=== PATIENT | male | born 1975 | race Caucasian/White ===

== ENCOUNTER 2016-06-03 19:01 | Emergency (ER) | payer MEDICAID ==
[~2016-06-03 19:01] MED LIST: COUMADIN; QC IBUPROFEN200 MG PO
[2016-06-03] MEDS ORDERED: BACTRIM DS TAB1 EACH PO (19:49)
== END 2016-06-03 19:57 | disposition home or self-care (01) ==
LOC: ED 19:01
DX: L02.415 Cutaneous abscess of right lower limb (principal); M79.1 Myalgia; Z86.19 Personal history of other infectious and parasitic diseases; Z79.01 Long term (current) use of anticoagulants; B95.7 Other staphylococcus as the cause of diseases classified elsewhere
CPT/HCPCS: 90715; A4550

== ENCOUNTER 2020-11-25 10:36 | Emergency (ER) | payer MEDICAID ==
[~2020-11-25 10:36] MED LIST changes: +BACTRIM DS TAB1 EACH PO
[2020-11-25 11:10] LABS: BASO # 0.02 (0.02-0.10); EOS # 0.03 (0.04-0.40); EOS % 0.5 % (0.0-4.0); HEMATOCRIT 40.5 % (42.0-52.0); HEMOGLOBIN 12.8 g/dL (13.5-18.0); LYMPH# 1.16 (1.50-4.00); MEAN CELL VOLUME 88 fl (78-100); MEAN CORPUSCULAR HEMOGLOBIN 28 pg (27-31); MEAN CORPUSCULAR HGB CONC 32 g/dL (33-37); MEAN PLATELET VOLUME 10.5 fl (7.4-10.4); MONO # 0.66 (0.20-0.80); NEU # 4.08 (1.40-6.50); PLATELET COUNT 162 K/mm3 (130-400); RED BLOOD COUNT 4.63 M/mm3 (4.20-5.60)
[2020-11-25 11:25] LABS: ALBUMIN 3.3 g/dL (3.5-5.0)
[2020-11-25 11:26] LABS: CALCIUM 8.7 mg/dL (8.3-10.5)
[2020-11-25 11:28] LABS: TOTAL PROTEIN 6.6 g/dL (6.4-8.3)
[2020-11-25 11:29] LABS: TOTAL BILIRUBIN 0.7 mg/dL (0.2-1.2)
[2020-11-25] MEDS ORDERED: WARFARIN SOD5 MG PO (12:12)
[2020-11-25] MEDS ORDERED: WARFARIN SODIU2.5 MG PO (12:14)
[2020-11-25 12:18] LABS: PH-URINE 6.5 (5.0 - 8.0); URINE APPEARANCE HAZY; URINE BILIRUBIN NEGATIVE (NEGATIVE); URINE BLOOD TRACE (NEGATIVE); URINE COLOR YELLOW; URINE GLUCOSE NEGATIVE (NEGATIVE); URINE KETONE 2+ (NEGATIVE); URINE LEUKOCYTE ESTERASE NEGATIVE (NEGATIVE); URINE NITRATE NEGATIVE (NEGATIVE); URINE PROTEIN(semi-quant) NEGATIVE (NEGATIVE); URINE UROBILINOGEN NORMAL (NORMAL); URINE WBC 0-1 /hpf (0-3)
[2020-11-25 12:19] LABS: URINE MUCUS PRESENT (NOT PRESENT)
[2020-11-25 12:45] VITALS: BP 128/92
== END 2020-11-25 13:28 | disposition short-term general hospital (02) ==
LOC: ED 10:36
PROVIDERS: Nurse Practitioner
DX: I62.00 Nontraumatic subdural hemorrhage, unspecified (principal); G93.5 Compression of brain; G80.9 Cerebral palsy, unspecified; Z86.718 Personal history of other venous thrombosis and embolism; Z79.01 Long term (current) use of anticoagulants
CPT/HCPCS: J2270; J2405; J3430; J7030

== ENCOUNTER 2020-12-16 10:33 | Emergency (ER) | payer MEDICAID ==
[~2020-12-16] VITALS: Ht 172.7 cm; Wt 61.8 kg
[~2020-12-16 10:33] MED LIST changes: +WARFARIN SOD5 MG PO; +WARFARIN SODIU2.5 MG PO
[2020-12-16] MEDS ORDERED: TYLENOL 325MG325 MG PO (11:11)
[2020-12-16 11:30] LABS: BASO # 0.01 (0.02-0.10); EOS # 0.05 (0.04-0.40); HEMATOCRIT 38.1 % (42.0-52.0); HEMOGLOBIN 11.6 g/dL (13.5-18.0); LYMPH# 0.98 (1.50-4.00); MEAN CELL VOLUME 91 fl (78-100); MEAN CORPUSCULAR HEMOGLOBIN 28 pg (27-31); MEAN CORPUSCULAR HGB CONC 30 g/dL (33-37); MEAN PLATELET VOLUME 10.4 fl (7.4-10.4); MONO # 0.61 (0.20-0.80); NEU # 3.59 (1.40-6.50); PLATELET COUNT 151 K/mm3 (130-400); RED BLOOD COUNT 4.19 M/mm3 (4.20-5.60); RED CELL DISTRIBUTION WIDTH 15.1 % (11.5-14.5); WHITE BLOOD COUNT 5.3 K/mm3 (4.8-10.8)
[2020-12-16 11:33] LABS: ALBUMIN 3.2 g/dL (3.5-5.0)
[2020-12-16 11:35] LABS: CALCIUM 8.4 mg/dL (8.3-10.5)
[2020-12-16 11:36] LABS: TOTAL PROTEIN 6.3 g/dL (6.4-8.3)
[2020-12-16 11:38] LABS: TOTAL BILIRUBIN 0.6 mg/dL (0.2-1.2)
[2020-12-16 11:39] LABS: URINE APPEARANCE CLEAR; URINE BILIRUBIN NEGATIVE (NEGATIVE); URINE BLOOD NEGATIVE (NEGATIVE); URINE COLOR YELLOW; URINE GLUCOSE NEGATIVE (NEGATIVE); URINE KETONE NEGATIVE (NEGATIVE); URINE LEUKOCYTE ESTERASE NEGATIVE (NEGATIVE); URINE MUCUS PRESENT (NOT PRESENT); URINE NITRATE NEGATIVE (NEGATIVE); URINE PROTEIN(semi-quant) NEGATIVE (NEGATIVE); URINE UROBILINOGEN NORMAL (NORMAL)
[2020-12-16 12:06] LABS: PROTHROMBIN TIME 10.5 SECONDS (9.0-12.0)
[2020-12-16 15:00] VITALS: BP 136/58
== END 2020-12-16 15:02 | disposition home or self-care (01) ==
LOC: ED 10:33
PROVIDERS: Physician Assistant
DX: I82.403 Acute embolism and thrombosis of unspecified deep veins of lower extremity, bilateral (principal); G80.9 Cerebral palsy, unspecified; Z86.79 Personal history of other diseases of the circulatory system

== ENCOUNTER 2020-12-16 21:46 | Emergency (ER) | payer MEDICAID ==
[~2020-12-16 21:46] MED LIST changes: +TYLENOL 325MG325 MG PO
[2020-12-16 23:28] VITALS: BP 124/69
== END 2020-12-16 23:28 | disposition home or self-care (01) ==
LOC: ED 21:46
DX: G80.9 Cerebral palsy, unspecified (principal); I82.403 Acute embolism and thrombosis of unspecified deep veins of lower extremity, bilateral; R07.89 Other chest pain; Z86.79 Personal history of other diseases of the circulatory system
CPT/HCPCS: Q9967

== ENCOUNTER → 2020-12-17 | Outpatient (CLI) | payer MEDICAID ==
[~2020-12-17] MED LIST changes: +ACETAMINOPHEN325 M1 PO; +ATORVASTATIN CA10 MG PO; +CEPHALEXIN250 MG PO; +LACRI-LUBE OU; +OCULAR LUBRICANT OU; +VITAMIN D3 COM1 EACH PO
== END ==
LOC: RAD 13:13
DX: I62.00 Nontraumatic subdural hemorrhage, unspecified (principal)

== ENCOUNTER 2020-12-25 11:23 | Emergency (ER) | payer MEDICAID ==
[~2020-12-25] VITALS: Ht 170.2 cm; Wt 61.8 kg
[~2020-12-25 11:23] MED LIST changes: -ACETAMINOPHEN325 M1 PO; -ATORVASTATIN CA10 MG PO; -CEPHALEXIN250 MG PO; -LACRI-LUBE OU; -OCULAR LUBRICANT OU; -VITAMIN D3 COM1 EACH PO
[2020-12-25 14:10] VITALS: BP 119/81
== END 2020-12-28 14:10 | disposition home or self-care (01) ==
LOC: ED 11:23
DX: G80.9 Cerebral palsy, unspecified (principal); I82.409 Acute embolism and thrombosis of unspecified deep veins of unspecified lower extremity; I62.00 Nontraumatic subdural hemorrhage, unspecified

== ENCOUNTER → 2021-01-20 | Outpatient (CLI) | payer MEDICAID ==
[~2021-01-20] MED LIST changes: +ACETAMINOPHEN325 M1 PO; +ATORVASTATIN CA10 MG PO; +CEPHALEXIN250 MG PO; +LACRI-LUBE OU; +OCULAR LUBRICANT OU; +VITAMIN D3 COM1 EACH PO
[2021-01-20 13:41] LABS: BASO # 0.01 (0.02-0.10); EOS # 0.07 (0.04-0.40); EOS % 1.3 % (0.0-4.0); HEMATOCRIT 41.3 % (42.0-52.0); HEMOGLOBIN 12.9 g/dL (13.5-18.0); LYMPH# 1.25 (1.50-4.00); MEAN CELL VOLUME 89 fl (78-100); MEAN CORPUSCULAR HEMOGLOBIN 28 pg (27-31); MEAN CORPUSCULAR HGB CONC 31 g/dL (33-37); MEAN PLATELET VOLUME 10.5 fl (7.4-10.4); MONO # 0.44 (0.20-0.80); NEU # 3.44 (1.40-6.50); PLATELET COUNT 134 K/mm3 (130-400); RED BLOOD COUNT 4.65 M/mm3 (4.20-5.60); RED CELL DISTRIBUTION WIDTH 13.7 % (11.5-14.5); WHITE BLOOD COUNT 5.2 K/mm3 (4.8-10.8)
[2021-01-20 13:56] LABS: ALBUMIN 3.4 g/dL (3.5-5.0); POTASSIUM 3.6 mmol/L (3.5-5.1); SODIUM 141 mmol/L (136-145)
[2021-01-20 13:57] LABS: CALCIUM 9.3 mg/dL (8.3-10.5)
[2021-01-20 13:58] LABS: GLUCOSE 102 mg/dL (75-110); TOTAL PROTEIN 6.6 g/dL (6.4-8.3)
[2021-01-20 13:59] LABS: CARBON DIOXIDE 25 mmol/L (22-29)
[2021-01-20 14:00] LABS: TOTAL BILIRUBIN 0.4 mg/dL (0.2-1.2)
[2021-01-20 14:04] LABS: AST-SGOT 25 U/L (5-34)
[2021-01-20 14:05] LABS: ALT/SGPT 22 U/L (0-55)
[2021-01-20 15:34] LABS: ERYTHROCYTE SEDIMENTATION RATE 4 mm/hr (0-15)
== END ==
LOC: RAD 01-19 10:00 → LAB 13:00 → RAD 13:00
DX: K90.9 Intestinal malabsorption, unspecified (principal); R51.9 Headache, unspecified

== ENCOUNTER 2021-02-27 18:50 | Emergency (ER) | payer MEDICAID ==
[~2021-02-27 18:50] MED LIST changes: -ACETAMINOPHEN325 M1 PO; -ATORVASTATIN CA10 MG PO; -CEPHALEXIN250 MG PO; -LACRI-LUBE OU; -OCULAR LUBRICANT OU; -VITAMIN D3 COM1 EACH PO
[2021-02-27] MEDS ORDERED: ATORVASTATIN CA10 MG PO (19:03)
[2021-02-27 19:50] VITALS: BP 119/68
== END 2021-02-27 19:50 | disposition home or self-care (01) ==
LOC: ED 18:50
DX: I82.409 Acute embolism and thrombosis of unspecified deep veins of unspecified lower extremity (principal); R51.9 Headache, unspecified; G80.9 Cerebral palsy, unspecified; Z86.79 Personal history of other diseases of the circulatory system

== ENCOUNTER 2021-03-07 20:52 | Emergency (ER) | payer MEDICAID ==
[~2021-03-07] VITALS: Wt 61.4 kg
[~2021-03-07 20:52] MED LIST changes: +ATORVASTATIN CA10 MG PO
[2021-03-07] MEDS ORDERED: VITAMIN D3 COM1 EACH PO (21:06)
[2021-03-07 22:35] LABS: EOS % 1.3 % (0.0-4.0); HEMATOCRIT 39.9 % (42.0-52.0); HEMOGLOBIN 12.6 g/dL (13.5-18.0); LYMPH# 1.18 K/mm3 (1.50-4.00); MEAN CELL VOLUME 88 fl (78-100); MEAN CORPUSCULAR HEMOGLOBIN 28 pg (27-31); MEAN CORPUSCULAR HGB CONC 32 g/dL (33-37); MEAN PLATELET VOLUME 10.7 fl (7.4-10.4); NEU # 5.29 K/mm3 (1.40-6.50); PLATELET COUNT 154 K/mm3 (130-400); RED BLOOD COUNT 4.54 M/mm3 (4.20-5.60); RED CELL DISTRIBUTION WIDTH 12.9 % (11.5-14.5); WHITE BLOOD COUNT 7.5 K/mm3 (4.8-10.8)
[2021-03-07] MEDS ORDERED: CEPHALEXIN250 MG PO ×2 (23:19→23:31)
[2021-03-07 23:36] VITALS: BP 108/73
== END 2021-03-07 23:37 | disposition home or self-care (01) ==
LOC: ED 20:52
PROVIDERS: Family Medicine
DX: I82.401 Acute embolism and thrombosis of unspecified deep veins of right lower extremity (principal); L03.115 Cellulitis of right lower limb; G80.9 Cerebral palsy, unspecified

== ENCOUNTER 2021-03-12 19:00 | Observation (INO) | payer MEDICAID ==
[~2021-03-12] VITALS: Ht 172.7 cm; Wt 61.9 kg
[~2021-03-12 19:00] MED LIST changes: +CEPHALEXIN250 MG PO; +VITAMIN D3 COM1 EACH PO
[2021-03-12 20:22] LABS: BASO # 0.01 K/mm3 (0.02-0.10); EOS # 0.12 K/mm3 (0.04-0.40); EOS % 1.9 % (0.0-4.0); HEMATOCRIT 41.5 % (42.0-52.0); HEMOGLOBIN 12.8 g/dL (13.5-18.0); LYMPH# 1.63 K/mm3 (1.50-4.00); MEAN CELL VOLUME 88 fl (78-100); MEAN CORPUSCULAR HEMOGLOBIN 27 pg (27-31); MEAN CORPUSCULAR HGB CONC 31 g/dL (33-37); MEAN PLATELET VOLUME 11.1 fl (7.4-10.4); MONO # 0.66 K/mm3 (0.20-0.80); PLATELET COUNT 139 K/mm3 (130-400); RED BLOOD COUNT 4.71 M/mm3 (4.20-5.60); RED CELL DISTRIBUTION WIDTH 12.8 % (11.5-14.5); WHITE BLOOD COUNT 6.3 K/mm3 (4.8-10.8)
[2021-03-12 20:35] LABS: ALBUMIN 3.2 g/dL (3.5-5.0)
[2021-03-12 20:36] LABS: POTASSIUM 4.1 mmol/L (3.5-5.1)
[2021-03-12 20:37] LABS: URINE WBC 0 /hpf (0-3)
[2021-03-12 20:37] LABS: CALCIUM 9.2 mg/dL (8.3-10.5)
[2021-03-12 20:38] LABS: TOTAL PROTEIN 6.7 g/dL (6.4-8.3)
[2021-03-12 20:40] LABS: TOTAL BILIRUBIN 0.3 mg/dL (0.2-1.2)
[2021-03-12 20:49] LABS: PH-URINE 6.5 (5.0 - 8.0); URINE APPEARANCE CLEAR; URINE BILIRUBIN NEGATIVE (NEGATIVE); URINE BLOOD NEGATIVE (NEGATIVE); URINE COLOR YELLOW; URINE GLUCOSE NEGATIVE (NEGATIVE); URINE KETONE NEGATIVE (NEGATIVE); URINE LEUKOCYTE ESTERASE NEGATIVE (NEGATIVE); URINE NITRATE NEGATIVE (NEGATIVE); URINE PROTEIN(semi-quant) TRACE mg/dL (NEGATIVE); URINE UROBILINOGEN NORMAL (NORMAL)
[2021-03-12 20:50] LABS: URINE MUCUS PRESENT (NOT PRESENT)
[2021-03-12 22:49] VITALS: BP 124/94
[2021-03-13 02:10] VITALS: BP 118/70
[2021-03-13 05:56] VITALS: BP 115/73
--- NOTE | 2021-03-13 09:34 | NUR ---
Patient resting in chair watching TV. Visiting with staff in regards to leaving today. Requesting a shower and clean clothes prior to leaving. Awaiting recomendations from neurosurgery. Reports he slept well last night. Chair in locked position. Call light within reach.
[2021-03-13 10:20] VITALS: BP 118/90
[2021-03-13 14:15] VITALS: BP 118/72
[2021-03-13 18:02] VITALS: BP 113/75
--- NOTE | 2021-03-13 18:50 | NUR ---
Report received from Mayi BROWN. Pt sitting in reciliner watching TV. Pt denies any needs at this time.
--- NOTE | 2021-03-13 20:10 | NUR ---
Call received from rooming house inspector at [facility] et bed assignment [facility] ICU RM 14. Pt notified. Mom Michelle notified. [facility] notified of transfer.
--- NOTE | 2021-03-13 20:17 | NUR ---
Notified EMS of pt needing transfer to [facility]. Medical Billing Service reports that they will probably not be available til about 2144 as trucks all tied up at football games and one truck in middle of transport. Will plan on their transporting patient unless pt needing quicker transfer. VSS on this patient.
--- NOTE | 2021-03-13 20:27 | NUR ---
Report called to Tiara BROWN at [facility] neuro ICU.
[2021-03-13 20:58] VITALS: BP 113/75
--- NOTE | 2021-03-13 22:07 | NUR ---
EMS here. Report and transfer paperwork given. EMS to transport pt to [facility].
== END 2021-03-13 22:07 | disposition short-term general hospital (02) ==
LOC: ED 19:00 → MED/SURG 22:13
PROVIDERS: ADMIT Nurse Practitioner Family
DX: I62.01 Nontraumatic acute subdural hemorrhage (principal); L03.115 Cellulitis of right lower limb; G80.9 Cerebral palsy, unspecified; E78.5 Hyperlipidemia, unspecified; Z86.718 Personal history of other venous thrombosis and embolism; Z79.899 Other long term (current) drug therapy
CPT/HCPCS: G0378

== ENCOUNTER 2021-03-17 19:26 | Inpatient (IN) | payer MEDICAID ==
[~2021-03-17] VITALS: Ht 167.6 cm; Wt 61.8 kg
[2021-03-17 19:30] VITALS: BP 115/78
[2021-03-17] MEDS ORDERED: ACETAMINOPHEN325 M1 PO (19:55)
[2021-03-17] MEDS ORDERED: LACRI-LUBE OU (20:00)
[2021-03-17] MEDS ORDERED: OCULAR LUBRICANT OU (20:01)
[2021-03-17 21:58] LABS: BASO # 0.02 K/mm3 (0.02-0.10); EOS # 0.16 K/mm3 (0.04-0.40); EOS % 1.9 % (0.0-4.0); HEMATOCRIT 40.6 % (42.0-52.0); HEMOGLOBIN 12.6 g/dL (13.5-18.0); LYMPH# 1.78 K/mm3 (1.50-4.00); MEAN CELL VOLUME 86 fl (78-100); MEAN CORPUSCULAR HEMOGLOBIN 27 pg (27-31); MEAN CORPUSCULAR HGB CONC 31 g/dL (33-37); MEAN PLATELET VOLUME 10.6 fl (7.4-10.4); MONO # 0.86 K/mm3 (0.20-0.80); NEU # 5.58 K/mm3 (1.40-6.50); PLATELET COUNT 131 K/mm3 (130-400); RED CELL DISTRIBUTION WIDTH 12.9 % (11.5-14.5); WHITE BLOOD COUNT 8.4 K/mm3 (4.8-10.8)
[2021-03-18 05:57] VITALS: BP 106/68
[2021-03-18 08:01] LABS: HEMATOCRIT 39.1 % (42.0-52.0); HEMOGLOBIN 12.3 g/dL (13.5-18.0); MEAN PLATELET VOLUME 10.7 fl (7.4-10.4); RED BLOOD COUNT 4.53 M/mm3 (4.20-5.60); WHITE BLOOD COUNT 5.7 K/mm3 (4.8-10.8)
[2021-03-18 08:11] LABS: POTASSIUM 4.1 mmol/L (3.5-5.1)
[2021-03-18 08:12] LABS: CALCIUM 8.4 mg/dL (8.3-10.5)
[2021-03-18 08:14] LABS: TOTAL PROTEIN 6.2 g/dL (6.4-8.3)
[2021-03-18 08:15] LABS: TOTAL BILIRUBIN 0.4 mg/dL (0.2-1.2)
[2021-03-18 17:37] VITALS: BP 114/83
[2021-03-18 19:27] LABS: URINE APPEARANCE CLEAR; URINE BILIRUBIN NEGATIVE (NEGATIVE); URINE BLOOD NEGATIVE (NEGATIVE); URINE COLOR YELLOW; URINE GLUCOSE NEGATIVE (NEGATIVE); URINE KETONE NEGATIVE (NEGATIVE); URINE LEUKOCYTE ESTERASE NEGATIVE (NEGATIVE); URINE MUCUS PRESENT (NOT PRESENT); URINE NITRATE NEGATIVE (NEGATIVE); URINE PROTEIN(semi-quant) TRACE mg/dL (NEGATIVE); URINE UROBILINOGEN NORMAL (NORMAL); URINE WBC 0-1 /hpf (0-3)
[2021-03-19 05:50] VITALS: BP 107/67
[2021-03-19 18:30] VITALS: BP 113/64
[2021-03-20 05:45] VITALS: BP 109/66
[2021-03-20 10:36] LABS: PROTHROMBIN TIME 11.9 SECONDS (9.0-12.0)
[2021-03-20 17:16] VITALS: BP 102/56
[2021-03-21 05:40] VITALS: BP 114/69
[2021-03-21 17:41] VITALS: BP 124/83
[2021-03-22 05:50] VITALS: BP 102/73
[2021-03-22 17:56] VITALS: BP 106/740
[2021-03-23 06:03] VITALS: BP 111/69
[2021-03-23 14:22] VITALS: BP 128/75
[2021-03-24 05:44] VITALS: BP 109/71
[2021-03-24 16:42] VITALS: BP 134/73
[2021-03-25 05:37] VITALS: BP 113/68
[2021-03-25 18:05] VITALS: BP 115/73
[2021-03-26 05:39] VITALS: BP 118/73
[2021-03-26 06:55] LABS: BASO # 0.01 K/mm3 (0.02-0.10); EOS # 0.12 K/mm3 (0.04-0.40); EOS % 2.3 % (0.0-4.0); HEMOGLOBIN 11.6 g/dL (13.5-18.0); LYMPH# 1.11 K/mm3 (1.50-4.00); MEAN CELL VOLUME 87 fl (78-100); MEAN CORPUSCULAR HEMOGLOBIN 27 pg (27-31); MEAN CORPUSCULAR HGB CONC 31 g/dL (33-37); MONO # 0.66 K/mm3 (0.20-0.80); NEU # 3.31 K/mm3 (1.40-6.50); PLATELET COUNT 123 K/mm3 (130-400); RED BLOOD COUNT 4.25 M/mm3 (4.20-5.60); RED CELL DISTRIBUTION WIDTH 13.4 % (11.5-14.5); WHITE BLOOD COUNT 5.2 K/mm3 (4.8-10.8)
[2021-03-26 07:38] LABS: CALCIUM 8.2 mg/dL (8.3-10.5)
[2021-03-26 18:50] VITALS: BP 124/83
[2021-03-27 05:50] VITALS: BP 116/76
[2021-03-27 18:01] VITALS: BP 109/68
[2021-03-28 06:35] VITALS: BP 121/70
[2021-03-28 18:20] VITALS: BP 128/74
[2021-03-29 06:08] VITALS: BP 113/64
[2021-03-29 18:00] VITALS: BP 126/75
[2021-03-30 06:19] VITALS: BP 109/66
[2021-03-30 15:01] VITALS: BP 115/73
[2021-03-31 05:57] VITALS: BP 111/62
== END 2021-03-31 12:09 | disposition home or self-care (01) | DRG 947 ==
LOC: MED/SURG 19:26
PROVIDERS: Nurse Practitioner; Physician Assistant; ADMIT Nurse Practitioner Family
DX: R53.81 Other malaise (principal); I62.02 Nontraumatic subacute subdural hemorrhage; L03.115 Cellulitis of right lower limb; G80.9 Cerebral palsy, unspecified; Z86.718 Personal history of other venous thrombosis and embolism; E78.5 Hyperlipidemia, unspecified; R51.9 Headache, unspecified

== ENCOUNTER → 2021-04-13 | Outpatient (CLI) | payer MEDICAID ==
[~2021-04-13] MED LIST changes: +ACETAMINOPHEN325 M1 PO; +LACRI-LUBE OU; +OCULAR LUBRICANT OU
== END ==
LOC: VAS 16:02
DX: I82.413 Acute embolism and thrombosis of femoral vein, bilateral (principal); I82.433 Acute embolism and thrombosis of popliteal vein, bilateral; I82.812 Embolism and thrombosis of superficial veins of left lower extremity

== ENCOUNTER 2021-04-27 17:05 | Emergency (ER) | payer MEDICAID ==
[~2021-04-27] VITALS: Wt 65.9 kg
[~2021-04-27 17:05] MED LIST changes: -OMEPRAZOLE40 MG PO
[2021-04-27 17:57] LABS: BASO # 0.02 K/mm3 (0.02-0.10); EOS % 3.1 % (0.0-4.0); HEMATOCRIT 39.9 % (42.0-52.0); HEMOGLOBIN 12.3 g/dL (13.5-18.0); LYMPH# 1.61 K/mm3 (1.50-4.00); MEAN CELL VOLUME 87 fl (78-100); MEAN CORPUSCULAR HEMOGLOBIN 27 pg (27-31); MEAN CORPUSCULAR HGB CONC 31 g/dL (33-37); MEAN PLATELET VOLUME 10.1 fl (7.4-10.4); MONO # 0.63 K/mm3 (0.20-0.80); NEU # 3.91 K/mm3 (1.40-6.50); PLATELET COUNT 115 K/mm3 (130-400); RED BLOOD COUNT 4.61 M/mm3 (4.20-5.60); RED CELL DISTRIBUTION WIDTH 14.3 % (11.5-14.5); WHITE BLOOD COUNT 6.4 K/mm3 (4.8-10.8)
[2021-04-27 18:29] LABS: POTASSIUM 3.7 mmol/L (3.5-5.1)
[2021-04-27 18:42] VITALS: BP 128/69
[2021-04-27] MEDS ORDERED: OMEPRAZOLE40 MG PO (18:54)
== END 2021-04-27 18:42 | disposition home or self-care (01) ==
LOC: ED 17:05
PROVIDERS: Nurse Practitioner
DX: M79.652 Pain in left thigh (principal); G80.9 Cerebral palsy, unspecified; E78.5 Hyperlipidemia, unspecified; Z86.718 Personal history of other venous thrombosis and embolism; Z79.899 Other long term (current) drug therapy

== ENCOUNTER → 2021-04-27 | Outpatient (CLI) | payer MEDICAID ==
[~2021-04-27] MED LIST changes: +OMEPRAZOLE40 MG PO
== END ==
LOC: RAD 12:53
DX: S06.5X0A Traumatic subdural hemorrhage without loss of consciousness, initial encounter (principal)

== ENCOUNTER → 2021-05-19 | Outpatient (CLI) | payer MEDICAID ==
[~2021-05-19] MED LIST changes: +OMEPRAZOLE40 MG PO
[2021-05-19 12:54] LABS: BASO # 0.01 K/mm3 (0.02-0.10); EOS # 0.13 K/mm3 (0.04-0.40); EOS % 2.7 % (0.0-4.0); HEMATOCRIT 40.6 % (42.0-52.0); HEMOGLOBIN 12.4 g/dL (13.5-18.0); MEAN CELL VOLUME 86 fl (78-100); MEAN CORPUSCULAR HEMOGLOBIN 26 pg (27-31); MEAN CORPUSCULAR HGB CONC 31 g/dL (33-37); MEAN PLATELET VOLUME 10.1 fl (7.4-10.4); MONO # 0.48 K/mm3 (0.20-0.80); NEU # 2.86 K/mm3 (1.40-6.50); PLATELET COUNT 174 K/mm3 (130-400); RED BLOOD COUNT 4.72 M/mm3 (4.20-5.60); RED CELL DISTRIBUTION WIDTH 14.1 % (11.5-14.5); WHITE BLOOD COUNT 4.8 K/mm3 (4.8-10.8)
[2021-05-19 13:04] LABS: ALBUMIN 3.5 g/dL (3.5-5.0); POTASSIUM 4.4 mmol/L (3.5-5.1); SODIUM 141 mmol/L (136-145)
[2021-05-19 13:07] LABS: GLUCOSE 108 mg/dL (75-110); TOTAL PROTEIN 7.2 g/dL (6.4-8.3)
[2021-05-19 13:08] LABS: CARBON DIOXIDE 27 mmol/L (22-29)
[2021-05-19 13:09] LABS: TOTAL BILIRUBIN 0.3 mg/dL (0.2-1.2)
[2021-05-19 13:12] LABS: AST-SGOT 31 U/L (5-34)
[2021-05-19 13:13] LABS: ALT/SGPT 28 U/L (0-55)
[2021-05-19 13:15] LABS: PROTHROMBIN TIME 37.7 SECONDS (9.0-12.0)
== END ==
LOC: LAB 12:34
PROVIDERS: Internal Medicine
DX: I62.00 Nontraumatic subdural hemorrhage, unspecified (principal); I74.9 Embolism and thrombosis of unspecified artery; K90.9 Intestinal malabsorption, unspecified

== ENCOUNTER → 2021-05-25 | Outpatient (CLI) | payer MEDICAID ==
[2021-05-25 11:10] LABS: PROTHROMBIN TIME 13.1 SECONDS (9.0-12.0)
== END ==
LOC: LAB 10:39
PROVIDERS: Internal Medicine
DX: I74.9 Embolism and thrombosis of unspecified artery (principal)

== ENCOUNTER → 2021-06-01 | Outpatient (CLI) | payer MEDICAID ==
[2021-06-01 13:03] LABS: PROTHROMBIN TIME 24.3 SECONDS (9.0-12.0)
== END ==
LOC: LAB 11:29
PROVIDERS: Internal Medicine
DX: I74.9 Embolism and thrombosis of unspecified artery (principal)

== ENCOUNTER 2021-06-06 15:23 | Emergency (ER) | payer MEDICAID ==
[~2021-06-06] VITALS: Ht 167.6 cm; Wt 68.2 kg
[2021-06-06 16:48] LABS: BASO # 0.02 K/mm3 (0.02-0.10); EOS # 0.15 K/mm3 (0.04-0.40); EOS % 2.7 % (0.0-4.0); HEMATOCRIT 40.1 % (42.0-52.0); HEMOGLOBIN 12.6 g/dL (13.5-18.0); LYMPH# 1.48 K/mm3 (1.50-4.00); MEAN CELL VOLUME 85 fl (78-100); MEAN CORPUSCULAR HEMOGLOBIN 27 pg (27-31); MEAN CORPUSCULAR HGB CONC 31 g/dL (33-37); MEAN PLATELET VOLUME 11.1 fl (7.4-10.4); MONO # 0.53 K/mm3 (0.20-0.80); NEU # 3.31 K/mm3 (1.40-6.50); PLATELET COUNT 166 K/mm3 (130-400); RED CELL DISTRIBUTION WIDTH 14.7 % (11.5-14.5); WHITE BLOOD COUNT 5.5 K/mm3 (4.8-10.8)
[2021-06-06 17:30] VITALS: BP 112/68
== END 2021-06-06 17:30 | disposition home or self-care (01) ==
LOC: ED 15:23
PROVIDERS: Family Medicine
DX: G44.309 Post-traumatic headache, unspecified, not intractable (principal); R07.89 Other chest pain; E78.5 Hyperlipidemia, unspecified; Z87.820 Personal history of traumatic brain injury; Z86.718 Personal history of other venous thrombosis and embolism; Z79.01 Long term (current) use of anticoagulants; Z79.899 Other long term (current) drug therapy

== ENCOUNTER → 2021-06-08 | Outpatient (CLI) | payer MEDICAID ==
[2021-06-08 13:32] LABS: PROTHROMBIN TIME 11.7 SECONDS (9.0-12.0)
== END ==
LOC: LAB 12:30
PROVIDERS: Internal Medicine
DX: I74.9 Embolism and thrombosis of unspecified artery (principal)

== ENCOUNTER 2021-06-13 15:56 | Emergency (ER) | payer MEDICAID ==
[~2021-06-13] VITALS: Wt 67.6 kg
[2021-06-13 16:09] VITALS: BP 117/93
[2021-06-13] MEDS ORDERED: WARFARIN SODIUM1 MG PO (16:13)
[2021-06-13 17:13] LABS: BASO # 0.01 K/mm3 (0.02-0.10); EOS # 0.14 K/mm3 (0.04-0.40); EOS % 2.5 % (0.0-4.0); HEMATOCRIT 40.2 % (42.0-52.0); HEMOGLOBIN 12.6 g/dL (13.5-18.0); LYMPH# 1.36 K/mm3 (1.50-4.00); MEAN CELL VOLUME 85 fl (78-100); MEAN CORPUSCULAR HEMOGLOBIN 27 pg (27-31); MEAN CORPUSCULAR HGB CONC 31 g/dL (33-37); MEAN PLATELET VOLUME 10.9 fl (7.4-10.4); MONO # 0.58 K/mm3 (0.20-0.80); NEU # 3.61 K/mm3 (1.40-6.50); PLATELET COUNT 156 K/mm3 (130-400); RED BLOOD COUNT 4.73 M/mm3 (4.20-5.60); WHITE BLOOD COUNT 5.7 K/mm3 (4.8-10.8)
[2021-06-13 17:26] LABS: ALBUMIN 3.4 g/dL (3.5-5.0); POTASSIUM 4.4 mmol/L (3.5-5.1)
[2021-06-13 17:27] LABS: CALCIUM 8.9 mg/dL (8.3-10.5)
[2021-06-13 17:29] LABS: TOTAL PROTEIN 6.9 g/dL (6.4-8.3)
[2021-06-13 17:30] LABS: TOTAL BILIRUBIN 0.4 mg/dL (0.2-1.2)
[2021-06-13 17:40] LABS: PROTHROMBIN TIME 33.9 SECONDS (9.0-12.0)
[2021-06-13] MEDS ORDERED: TRAMADOL 50 MG TAB PO (18:06)
== END 2021-06-13 18:12 | disposition home or self-care (01) ==
LOC: ED 15:56
PROVIDERS: Family Medicine
DX: S61.219A Laceration without foreign body of unspecified finger without damage to nail, initial encounter (principal); R07.89 Other chest pain; G80.9 Cerebral palsy, unspecified; E78.5 Hyperlipidemia, unspecified; Z86.718 Personal history of other venous thrombosis and embolism; Z79.01 Long term (current) use of anticoagulants; Z79.899 Other long term (current) drug therapy; X58.XXXA Exposure to other specified factors, initial encounter

== ENCOUNTER → 2021-06-15 | Outpatient (CLI) | payer MEDICAID ==
[~2021-06-15] MED LIST changes: +TRAMADOL 50 MG TAB PO; +WARFARIN SODIUM1 MG PO
[2021-06-15 11:42] LABS: PROTHROMBIN TIME 23.9 SECONDS (9.0-12.0)
== END ==
LOC: LAB 11:07
PROVIDERS: Internal Medicine
DX: I74.9 Embolism and thrombosis of unspecified artery (principal)

== ENCOUNTER → 2021-06-22 | Outpatient (CLI) | payer MEDICAID ==
[2021-06-22 13:20] LABS: PROTHROMBIN TIME 17.5 SECONDS (9.0-12.0)
== END ==
LOC: LAB 12:59
PROVIDERS: Internal Medicine
DX: I74.9 Embolism and thrombosis of unspecified artery (principal)

== ENCOUNTER → 2021-06-29 | Outpatient (CLI) | payer MEDICAID ==
[2021-06-29 11:25] LABS: PROTHROMBIN TIME 13.8 SECONDS (9.0-12.0)
== END ==
LOC: LAB 10:48
PROVIDERS: Internal Medicine
DX: I74.9 Embolism and thrombosis of unspecified artery (principal)

== ENCOUNTER 2021-07-03 10:16 | Emergency (ER) | payer MEDICAID ==
[~2021-07-03] VITALS: Ht 167.6 cm; Wt 67.6 kg
[2021-07-03 11:07] LABS: BASO # 0.02 K/mm3 (0.02-0.10); EOS # 0.09 K/mm3 (0.04-0.40); EOS % 1.8 % (0.0-4.0); HEMATOCRIT 41.2 % (42.0-52.0); HEMOGLOBIN 12.9 g/dL (13.5-18.0); LYMPH# 1.29 K/mm3 (1.50-4.00); MEAN CELL VOLUME 85 fl (78-100); MEAN CORPUSCULAR HEMOGLOBIN 27 pg (27-31); MEAN CORPUSCULAR HGB CONC 31 g/dL (33-37); MEAN PLATELET VOLUME 11.1 fl (7.4-10.4); MONO # 0.45 K/mm3 (0.20-0.80); NEU # 3.17 K/mm3 (1.40-6.50); PLATELET COUNT 171 K/mm3 (130-400); RED BLOOD COUNT 4.86 M/mm3 (4.20-5.60)
[2021-07-03 11:15] LABS: POTASSIUM 4.4 mmol/L (3.5-5.1)
[2021-07-03 11:16] LABS: CALCIUM 9.2 mg/dL (8.3-10.5)
[2021-07-03 11:18] LABS: PROTHROMBIN TIME 18.2 SECONDS (9.0-12.0)
[2021-07-03 12:05] VITALS: BP 121/74
== END 2021-07-03 12:07 | disposition home or self-care (01) ==
LOC: ED 10:16
PROVIDERS: Physician Assistant
DX: S06.0X0A Concussion without loss of consciousness, initial encounter (principal); Z79.01 Long term (current) use of anticoagulants; W19.XXXA Unspecified fall, initial encounter

== ENCOUNTER → 2021-07-06 | Outpatient (CLI) | payer MEDICAID ==
[2021-07-06 12:00] LABS: PROTHROMBIN TIME 17.6 SECONDS (9.0-12.0)
== END ==
LOC: LAB 11:20
PROVIDERS: Internal Medicine
DX: I74.9 Embolism and thrombosis of unspecified artery (principal)

== ENCOUNTER → 2021-07-13 | Outpatient (CLI) | payer MEDICAID ==
[2021-07-13 16:53] LABS: PROTHROMBIN TIME 17.8 SECONDS (9.0-12.0)
== END ==
LOC: LAB 16:03
PROVIDERS: Internal Medicine
DX: I74.9 Embolism and thrombosis of unspecified artery (principal)

== ENCOUNTER → 2021-07-27 | Outpatient (CLI) | payer MEDICAID ==
[2021-07-27 17:31] LABS: PROTHROMBIN TIME 29.5 SECONDS (9.0-12.0)
== END ==
LOC: LAB 16:36
PROVIDERS: Internal Medicine
DX: I74.9 Embolism and thrombosis of unspecified artery (principal)

== ENCOUNTER → 2021-08-04 | Outpatient (CLI) | payer MEDICAID ==
[2021-08-04 11:28] LABS: PROTHROMBIN TIME 23.6 SECONDS (9.0-12.0)
== END ==
LOC: LAB 10:54
PROVIDERS: Internal Medicine
DX: I74.9 Embolism and thrombosis of unspecified artery (principal)

== ENCOUNTER → 2021-08-10 | Outpatient (CLI) | payer MEDICAID ==
[2021-08-10 10:40] LABS: PROTHROMBIN TIME 26.5 SECONDS (9.0-12.0)
== END ==
LOC: LAB 10:04
PROVIDERS: Internal Medicine
DX: I74.9 Embolism and thrombosis of unspecified artery (principal)

== ENCOUNTER → 2021-08-17 | Outpatient (CLI) | payer MEDICAID ==
[2021-08-17 11:39] LABS: PROTHROMBIN TIME 19.5 SECONDS (9.0-12.0)
== END ==
LOC: LAB 09:48
PROVIDERS: Internal Medicine
DX: I74.9 Embolism and thrombosis of unspecified artery (principal)

== ENCOUNTER → 2021-08-24 | Outpatient (CLI) | payer MEDICAID ==
[2021-08-24 14:36] LABS: PROTHROMBIN TIME 28.2 SECONDS (9.0-12.0)
== END ==
LOC: LAB 14:10
PROVIDERS: Internal Medicine
DX: I74.9 Embolism and thrombosis of unspecified artery (principal)

== ENCOUNTER → 2021-08-31 | Outpatient (CLI) | payer MEDICAID ==
[2021-08-31 11:33] LABS: PROTHROMBIN TIME 29.6 SECONDS (9.0-12.0)
== END ==
LOC: LAB 10:35
PROVIDERS: Internal Medicine
DX: I74.9 Embolism and thrombosis of unspecified artery (principal)

== ENCOUNTER → 2021-09-07 | Outpatient (CLI) | payer MEDICAID ==
[2021-09-07 10:31] LABS: PROTHROMBIN TIME 24.3 SECONDS (9.0-12.0)
== END ==
LOC: LAB 09:46
PROVIDERS: Internal Medicine
DX: I74.9 Embolism and thrombosis of unspecified artery (principal)

== ENCOUNTER → 2021-09-14 | Outpatient (CLI) | payer MEDICAID ==
[2021-09-14 15:51] LABS: PROTHROMBIN TIME 12.7 SECONDS (9.0-12.0)
== END ==
LOC: LAB 15:15
PROVIDERS: Internal Medicine
DX: I74.9 Embolism and thrombosis of unspecified artery (principal)

== ENCOUNTER → 2021-09-18 | Outpatient (CLI) | payer MEDICAID ==
[2021-09-18 16:46] LABS: BASO # 0.01 K/mm3 (0.02-0.10); EOS # 0.04 K/mm3 (0.04-0.40); EOS % 1.1 % (0.0-4.0); HEMATOCRIT 41.4 % (42.0-52.0); HEMOGLOBIN 12.7 g/dL (13.5-18.0); LYMPH# 0.98 K/mm3 (1.50-4.00); MEAN CELL VOLUME 87 fl (78-100); MEAN CORPUSCULAR HEMOGLOBIN 27 pg (27-31); MEAN CORPUSCULAR HGB CONC 31 g/dL (33-37); MEAN PLATELET VOLUME 10.6 fl (7.4-10.4); MONO # 0.61 K/mm3 (0.20-0.80); NEU # 2.02 K/mm3 (1.40-6.50); PLATELET COUNT 157 K/mm3 (130-400); RED BLOOD COUNT 4.77 M/mm3 (4.20-5.60); RED CELL DISTRIBUTION WIDTH 14.2 % (11.5-14.5); WHITE BLOOD COUNT 3.7 K/mm3 (4.8-10.8)
[2021-09-18 17:00] LABS: ALBUMIN 3.5 g/dL (3.5-5.0)
[2021-09-18 17:01] LABS: POTASSIUM 3.7 mmol/L (3.5-5.1)
[2021-09-18 17:02] LABS: CALCIUM 8.9 mg/dL (8.3-10.5)
[2021-09-18 17:03] LABS: TOTAL PROTEIN 7.2 g/dL (6.4-8.3)
[2021-09-18 17:05] LABS: TOTAL BILIRUBIN 0.3 mg/dL (0.2-1.2)
[2021-09-24 14:13] LABS: VITAMIN B1 78 nmol/L (70-180)
== END ==
LOC: LAB 16:26
PROVIDERS: Internal Medicine
DX: D18.1 Lymphangioma, any site (principal); K21.9 Gastro-esophageal reflux disease without esophagitis; I62.00 Nontraumatic subdural hemorrhage, unspecified; I74.9 Embolism and thrombosis of unspecified artery; I87.2 Venous insufficiency (chronic) (peripheral); K90.9 Intestinal malabsorption, unspecified; R51.9 Headache, unspecified; R06.00 Dyspnea, unspecified

== ENCOUNTER → 2021-09-21 | Outpatient (CLI) | payer MEDICAID ==
[2021-09-21 13:39] LABS: PROTHROMBIN TIME 17.8 SECONDS (9.0-12.0)
== END ==
LOC: LAB 11:47
PROVIDERS: Internal Medicine
DX: I74.9 Embolism and thrombosis of unspecified artery (principal)

== ENCOUNTER → 2021-09-28 | Outpatient (CLI) | payer MEDICAID | LOC: LAB 08:56 | PROVIDERS: Internal Medicine | DX: I74.9 Embolism and thrombosis of unspecified artery (principal) ==

== ENCOUNTER → 2021-10-13 | Outpatient (CLI) | payer MEDICAID ==
[2021-10-13 13:51] LABS: PROTHROMBIN TIME 27.2 SECONDS (9.0-12.0)
== END ==
LOC: LAB 13:14
PROVIDERS: Internal Medicine
DX: I74.9 Embolism and thrombosis of unspecified artery (principal)

== ENCOUNTER → 2021-10-19 | Outpatient (CLI) | payer MEDICAID ==
[2021-10-19 13:25] LABS: PROTHROMBIN TIME 29.2 SECONDS (9.0-12.0)
== END ==
LOC: LAB 12:51
PROVIDERS: Internal Medicine
DX: I74.9 Embolism and thrombosis of unspecified artery (principal)

== ENCOUNTER → 2021-10-26 | Outpatient (CLI) | payer MEDICAID ==
[~2021-10-26] MED LIST changes: +ACETAMINOPHEN-H1 TA2 PO; +FIORICET 325 MG1 TAB PO; +JANTOVEN4 MG PO
== END ==
LOC: LAB 11:43
PROVIDERS: Internal Medicine
DX: I74.9 Embolism and thrombosis of unspecified artery (principal)

== ENCOUNTER 2021-11-01 16:34 | Emergency (ER) | payer MEDICAID ==
[~2021-11-01 16:34] MED LIST changes: -ACETAMINOPHEN-H1 TA2 PO; -FIORICET 325 MG1 TAB PO; -JANTOVEN4 MG PO
[2021-11-01] MEDS ORDERED: ACETAMINOPHEN-H1 TA2 PO (16:45)
[2021-11-01] MEDS ORDERED: JANTOVEN4 MG PO (16:45)
[2021-11-01 17:31] LABS: EOS # 0.07 K/mm3 (0.04-0.40); EOS % 1.5 % (0.0-4.0); HEMATOCRIT 41.2 % (42.0-52.0); LYMPH# 1.26 K/mm3 (1.50-4.00); MEAN CELL VOLUME 88 fl (78-100); MEAN CORPUSCULAR HEMOGLOBIN 28 pg (27-31); MEAN CORPUSCULAR HGB CONC 32 g/dL (33-37); MEAN PLATELET VOLUME 10.8 fl (7.4-10.4); MONO # 0.46 K/mm3 (0.20-0.80); NEU # 2.79 K/mm3 (1.40-6.50); PLATELET COUNT 143 K/mm3 (130-400); RED BLOOD COUNT 4.71 M/mm3 (4.20-5.60); RED CELL DISTRIBUTION WIDTH 14.1 % (11.5-14.5); WHITE BLOOD COUNT 4.6 K/mm3 (4.8-10.8)
[2021-11-01 17:50] LABS: PROTHROMBIN TIME 28.1 SECONDS (9.0-12.0)
[2021-11-01] MEDS ORDERED: FIORICET 325 MG1 TAB PO (18:02)
[2021-11-01 18:08] VITALS: BP 138/52
== END 2021-11-01 18:05 | disposition home or self-care (01) ==
LOC: ED 16:34
PROVIDERS: Family Medicine
DX: R51.9 Headache, unspecified (principal); Z28.310 Unvaccinated for COVID-19; Z86.79 Personal history of other diseases of the circulatory system

== ENCOUNTER → 2021-11-11 | Outpatient (CLI) | payer MEDICAID ==
[~2021-11-11] MED LIST changes: +ACETAMINOPHEN-H1 TA2 PO; +FIORICET 325 MG1 TAB PO; +JANTOVEN4 MG PO
[2021-11-11 14:13] LABS: PROTHROMBIN TIME 18.6 SECONDS (9.0-12.0)
== END ==
LOC: LAB 13:37
PROVIDERS: Internal Medicine
DX: I74.9 Embolism and thrombosis of unspecified artery (principal)

== ENCOUNTER → 2021-11-17 | Outpatient (CLI) | payer MEDICAID ==
[2021-11-17 14:10] LABS: PROTHROMBIN TIME 11.7 SECONDS (9.0-12.0)
== END ==
LOC: LAB 13:38
PROVIDERS: Internal Medicine
DX: I74.9 Embolism and thrombosis of unspecified artery (principal)

== ENCOUNTER → 2021-11-23 | Outpatient (CLI) | payer MEDICAID ==
[~2021-11-23] MED LIST changes: +AZITHROMYCIN 250MGPK PO
[2021-11-23 14:11] LABS: PROTHROMBIN TIME 17.3 SECONDS (9.0-12.0)
== END ==
LOC: LAB 13:35
PROVIDERS: Internal Medicine
DX: I74.9 Embolism and thrombosis of unspecified artery (principal)

== ENCOUNTER → 2021-11-30 | Outpatient (CLI) | payer MEDICAID ==
[2021-11-30 13:57] LABS: PROTHROMBIN TIME 24.3 SECONDS (9.0-12.0)
== END ==
LOC: LAB 13:33
PROVIDERS: Internal Medicine
DX: I74.9 Embolism and thrombosis of unspecified artery (principal)

== ENCOUNTER → 2021-12-16 | Outpatient (CLI) | payer MEDICAID ==
[2021-12-16 11:59] LABS: PROTHROMBIN TIME 62.2 SECONDS (9.0-12.0)
== END ==
LOC: LAB 10:59
PROVIDERS: Internal Medicine
DX: Z74.9 Problem related to care provider dependency, unspecified (principal)

== ENCOUNTER → 2021-12-18 | Outpatient (CLI) | payer MEDICAID ==
[2021-12-18 13:48] LABS: PROTHROMBIN TIME 37.7 SECONDS (9.0-12.0)
== END ==
LOC: LAB 12:10
PROVIDERS: Internal Medicine
DX: I74.9 Embolism and thrombosis of unspecified artery (principal)

== ENCOUNTER → 2021-12-28 | Outpatient (CLI) | payer MEDICAID ==
[2021-12-28 13:34] LABS: PROTHROMBIN TIME 18.4 SECONDS (9.0-12.0)
== END ==
LOC: LAB 13:10
PROVIDERS: Internal Medicine
DX: I74.9 Embolism and thrombosis of unspecified artery (principal)

== ENCOUNTER → 2022-01-05 | Outpatient (CLI) | payer MEDICAID ==
[~2022-01-05] MED LIST changes: +NORTRIPTYLINE H25 M1 PO; +SUMATRIPTAN SU100 MG PO
[2022-01-05 16:09] LABS: PROTHROMBIN TIME 29.1 SECONDS (9.0-12.0)
== END ==
LOC: LAB 15:39
PROVIDERS: Internal Medicine
DX: I74.9 Embolism and thrombosis of unspecified artery (principal)

== ENCOUNTER → 2022-01-07 | Outpatient (CLI) | payer MEDICAID ==
[2022-01-07 14:34] LABS: BASO # 0.01 K/mm3 (0.02-0.10); EOS # 0.03 K/mm3 (0.04-0.40); EOS % 0.7 % (0.0-4.0); HEMATOCRIT 41.2 % (42.0-52.0); LYMPH# 1.14 K/mm3 (1.50-4.00); MEAN CELL VOLUME 86 fl (78-100); MEAN CORPUSCULAR HEMOGLOBIN 27 pg (27-31); MEAN CORPUSCULAR HGB CONC 32 g/dL (33-37); MEAN PLATELET VOLUME 11.1 fl (7.4-10.4); MONO # 0.42 K/mm3 (0.20-0.80); NEU # 2.44 K/mm3 (1.40-6.50); PLATELET COUNT 160 K/mm3 (130-400); RED BLOOD COUNT 4.79 M/mm3 (4.20-5.60); RED CELL DISTRIBUTION WIDTH 14.7 % (11.5-14.5)
[2022-01-07 14:41] LABS: ALBUMIN 3.7 g/dL (3.5-5.0); POTASSIUM 3.9 mmol/L (3.5-5.1)
[2022-01-07 14:44] LABS: PROTHROMBIN TIME 27.4 SECONDS (9.0-12.0); TOTAL PROTEIN 7.4 g/dL (6.4-8.3)
[2022-01-07 14:45] LABS: D-DIMER 0.33 mg/L FEU (0.15-0.50)
[2022-01-07 14:46] LABS: TOTAL BILIRUBIN 0.4 mg/dL (0.2-1.2)
== END ==
LOC: LAB 14:08
PROVIDERS: Nurse Practitioner Family
DX: M79.604 Pain in right leg (principal)

== ENCOUNTER 2022-01-08 16:38 | Emergency (ER) | payer MEDICAID ==
[~2022-01-08] VITALS: Ht 175.3 cm; Wt 65.4 kg
[~2022-01-08 16:38] MED LIST changes: -NORTRIPTYLINE H25 M1 PO; -SUMATRIPTAN SU100 MG PO
[2022-01-08] MEDS ORDERED: WARFARIN SODIUM1 MG PO (16:58)
[2022-01-08] MEDS ORDERED: SUMATRIPTAN SU100 MG PO (17:00)
[2022-01-08] MEDS ORDERED: NORTRIPTYLINE H25 M1 PO (17:00)
[2022-01-08 18:49] VITALS: BP 118/79
== END 2022-01-08 18:56 | disposition home or self-care (01) ==
LOC: ED 16:38
DX: S81.812A Laceration without foreign body, left lower leg, initial encounter (principal); Z28.310 Unvaccinated for COVID-19; W26.9XXA Contact with unspecified sharp object(s), initial encounter; V00.811A Fall from moving wheelchair (powered), initial encounter; Y92.410 Unspecified street and highway as the place of occurrence of the external cause

== ENCOUNTER → 2022-01-19 | Outpatient (CLI) | payer MEDICAID ==
[~2022-01-19] MED LIST changes: +NORTRIPTYLINE H25 M1 PO; +SUMATRIPTAN SU100 MG PO
[2022-01-19 12:25] LABS: PROTHROMBIN TIME 29.1 SECONDS (9.0-12.0)
== END ==
LOC: LAB 11:47
PROVIDERS: Internal Medicine
DX: I74.9 Embolism and thrombosis of unspecified artery (principal)

== ENCOUNTER → 2022-02-03 | Outpatient (CLI) | payer MEDICAID ==
[2022-02-03 15:00] LABS: PROTHROMBIN TIME 26.9 SECONDS (9.0-12.0)
== END ==
LOC: LAB 14:08
PROVIDERS: Internal Medicine
DX: I74.9 Embolism and thrombosis of unspecified artery (principal)

== ENCOUNTER → 2022-03-11 | Outpatient (CLI) | payer MEDICAID ==
[2022-03-11 12:37] LABS: PROTHROMBIN TIME 22.8 SECONDS (9.0-12.0)
== END ==
LOC: LAB 12:01
PROVIDERS: Internal Medicine
DX: D18.1 Lymphangioma, any site (principal); K21.9 Gastro-esophageal reflux disease without esophagitis; I62.00 Nontraumatic subdural hemorrhage, unspecified; I74.9 Embolism and thrombosis of unspecified artery; I87.2 Venous insufficiency (chronic) (peripheral); K90.9 Intestinal malabsorption, unspecified

== ENCOUNTER → 2022-03-15 | Outpatient (CLI) | payer MEDICAID ==
[2022-03-15 13:45] LABS: PROTHROMBIN TIME 24.4 SECONDS (9.0-12.0)
== END ==
LOC: LAB 13:06
PROVIDERS: Internal Medicine
DX: D18.1 Lymphangioma, any site (principal); K21.9 Gastro-esophageal reflux disease without esophagitis; I62.00 Nontraumatic subdural hemorrhage, unspecified; I74.9 Embolism and thrombosis of unspecified artery; I87.2 Venous insufficiency (chronic) (peripheral); K90.9 Intestinal malabsorption, unspecified

== ENCOUNTER → 2022-03-31 | Outpatient (CLI) | payer MEDICAID ==
[2022-03-31 15:05] LABS: PROTHROMBIN TIME 20.9 SECONDS (9.0-12.0)
== END ==
LOC: LAB 14:22
PROVIDERS: Internal Medicine
DX: D18.1 Lymphangioma, any site (principal); K21.9 Gastro-esophageal reflux disease without esophagitis; I62.00 Nontraumatic subdural hemorrhage, unspecified; I74.9 Embolism and thrombosis of unspecified artery; I87.2 Venous insufficiency (chronic) (peripheral); K90.9 Intestinal malabsorption, unspecified

== ENCOUNTER → 2022-05-12 | Outpatient (CLI) | payer MEDICAID ==
[2022-05-12 15:54] LABS: PROTHROMBIN TIME 21.2 SECONDS (9.0-12.0)
== END ==
LOC: LAB 14:15
PROVIDERS: Internal Medicine
DX: D18.1 Lymphangioma, any site (principal); K21.9 Gastro-esophageal reflux disease without esophagitis; I62.00 Nontraumatic subdural hemorrhage, unspecified; I74.9 Embolism and thrombosis of unspecified artery; I87.2 Venous insufficiency (chronic) (peripheral); K90.9 Intestinal malabsorption, unspecified

== ENCOUNTER 2022-05-31 13:53 | Emergency (ER) | payer MEDICAID ==
[2022-05-31 14:46] LABS: EOS # 0.06 K/mm3 (0.04-0.40); EOS % 1.3 % (0.0-4.0); HEMATOCRIT 41.3 % (42.0-52.0); HEMOGLOBIN 12.7 g/dL (13.5-18.0); LYMPH# 1.59 K/mm3 (1.50-4.00); MEAN CELL VOLUME 84 fl (78-100); MEAN CORPUSCULAR HEMOGLOBIN 26 pg (27-31); MEAN CORPUSCULAR HGB CONC 31 g/dL (33-37); MEAN PLATELET VOLUME 11.6 fl (7.4-10.4); MONO # 0.43 K/mm3 (0.20-0.80); NEU # 2.49 K/mm3 (1.40-6.50); PLATELET COUNT 164 K/mm3 (130-400); RED BLOOD COUNT 4.91 M/mm3 (4.20-5.60); RED CELL DISTRIBUTION WIDTH 14.2 % (11.5-14.5); WHITE BLOOD COUNT 4.6 K/mm3 (4.8-10.8)
[2022-05-31 15:16] LABS: ALBUMIN 3.6 g/dL (3.5-5.0); POTASSIUM 3.8 mmol/L (3.5-5.1)
[2022-05-31 15:18] LABS: TOTAL PROTEIN 7.2 g/dL (6.4-8.3)
[2022-05-31 15:20] LABS: TOTAL BILIRUBIN 0.4 mg/dL (0.2-1.2)
[2022-05-31 17:26] VITALS: BP 116/75
== END 2022-05-31 17:40 | disposition home or self-care (01) ==
LOC: ED 13:53
PROVIDERS: Nurse Practitioner
DX: I82.401 Acute embolism and thrombosis of unspecified deep veins of right lower extremity (principal); R51.9 Headache, unspecified; Z28.310 Unvaccinated for COVID-19; Z79.01 Long term (current) use of anticoagulants

== ENCOUNTER 2022-06-30 16:09 | Emergency (ER) | payer MEDICAID ==
[~2022-06-30] VITALS: Wt 67.2 kg
[2022-06-30 16:43] LABS: BASO # 0.01 K/mm3 (0.02-0.10); EOS # 0.04 K/mm3 (0.04-0.40); EOS % 0.8 % (0.0-4.0); HEMOGLOBIN 12.6 g/dL (13.5-18.0); LYMPH# 1.53 K/mm3 (1.50-4.00); MEAN CELL VOLUME 83 fl (78-100); MEAN CORPUSCULAR HEMOGLOBIN 26 pg (27-31); MEAN CORPUSCULAR HGB CONC 31 g/dL (33-37); MEAN PLATELET VOLUME 11.4 fl (7.4-10.4); MONO # 0.63 K/mm3 (0.20-0.80); NEU # 3.11 K/mm3 (1.40-6.50); PLATELET COUNT 159 K/mm3 (130-400); RED BLOOD COUNT 4.92 M/mm3 (4.20-5.60); RED CELL DISTRIBUTION WIDTH 14.1 % (11.5-14.5); WHITE BLOOD COUNT 5.3 K/mm3 (4.8-10.8)
[2022-06-30 16:54] LABS: ALBUMIN 3.7 g/dL (3.5-5.0); POTASSIUM 3.6 mmol/L (3.5-5.1); SODIUM 140 mmol/L (136-145)
[2022-06-30 16:56] LABS: CALCIUM 9.3 mg/dL (8.3-10.5)
[2022-06-30 16:57] LABS: GLUCOSE 86 mg/dL (75-110); TOTAL PROTEIN 7.1 g/dL (6.4-8.3)
[2022-06-30 16:58] LABS: CARBON DIOXIDE 27 mmol/L (22-29)
[2022-06-30 16:59] LABS: TOTAL BILIRUBIN 0.3 mg/dL (0.2-1.2)
[2022-06-30 17:02] LABS: AST-SGOT 31 U/L (5-34)
[2022-06-30 17:03] LABS: ALT/SGPT 31 U/L (0-55)
[2022-06-30 17:16] LABS: TROPONIN-I < 0.030 ng/mL (<0.030)
[2022-06-30 17:53] LABS: PROTHROMBIN TIME 37.9 SECONDS (9.0-12.0)
[2022-06-30 18:03] VITALS: BP 138/82
== END 2022-06-30 18:01 | disposition home or self-care (01) ==
LOC: ED 16:09
PROVIDERS: Physician Assistant
DX: R51.9 Headache, unspecified (principal); R79.1 Abnormal coagulation profile; R06.02 Shortness of breath; R07.89 Other chest pain; Z28.310 Unvaccinated for COVID-19; Z86.718 Personal history of other venous thrombosis and embolism; Z79.01 Long term (current) use of anticoagulants
CPT/HCPCS: Q9967

== ENCOUNTER → 2022-07-13 | Outpatient (CLI) | payer MEDICAID ==
[2022-07-13 11:01] LABS: PROTHROMBIN TIME 29.6 SECONDS (9.0-12.0)
== END ==
LOC: LAB 10:14
PROVIDERS: Internal Medicine
DX: Z12.5 Encounter for screening for malignant neoplasm of prostate (principal); D18.1 Lymphangioma, any site; K21.9 Gastro-esophageal reflux disease without esophagitis; I62.00 Nontraumatic subdural hemorrhage, unspecified; I74.9 Embolism and thrombosis of unspecified artery; K90.9 Intestinal malabsorption, unspecified; I87.2 Venous insufficiency (chronic) (peripheral); R51.9 Headache, unspecified

== ENCOUNTER → 2022-08-10 | Outpatient (CLI) | payer MEDICAID ==
[2022-08-10 13:54] LABS: PROTHROMBIN TIME 31.9 SECONDS (9.0-12.0)
== END ==
LOC: LAB 13:10
PROVIDERS: Internal Medicine
DX: D18.1 Lymphangioma, any site (principal); I62.00 Nontraumatic subdural hemorrhage, unspecified; I74.9 Embolism and thrombosis of unspecified artery; I87.2 Venous insufficiency (chronic) (peripheral); K21.9 Gastro-esophageal reflux disease without esophagitis; K90.9 Intestinal malabsorption, unspecified

== ENCOUNTER → 2023-05-24 | Outpatient (CLI) | payer MEDICAID ==
[2023-05-24 15:14] LABS: PROTHROMBIN TIME 17.8 SECONDS (9.0-12.0)
== END ==
LOC: LAB 14:39
PROVIDERS: Internal Medicine
DX: Z12.5 Encounter for screening for malignant neoplasm of prostate (principal); D18.1 Lymphangioma, any site; K21.9 Gastro-esophageal reflux disease without esophagitis; I62.00 Nontraumatic subdural hemorrhage, unspecified; I74.9 Embolism and thrombosis of unspecified artery; K90.9 Intestinal malabsorption, unspecified; R51.9 Headache, unspecified; I87.2 Venous insufficiency (chronic) (peripheral)

== ENCOUNTER → 2023-06-13 | Outpatient (CLI) | payer MEDICAID ==
[2023-06-13 18:50] LABS: PROTHROMBIN TIME 47.4 SECONDS (9.0-12.0)
== END ==
LOC: LAB 18:05
PROVIDERS: Internal Medicine
DX: Z12.5 Encounter for screening for malignant neoplasm of prostate (principal); I74.9 Embolism and thrombosis of unspecified artery; D18.1 Lymphangioma, any site; K21.9 Gastro-esophageal reflux disease without esophagitis; I62.00 Nontraumatic subdural hemorrhage, unspecified; K90.9 Intestinal malabsorption, unspecified; I87.2 Venous insufficiency (chronic) (peripheral); R51.9 Headache, unspecified

== ENCOUNTER → 2023-06-29 | Outpatient (CLI) | payer MEDICAID ==
[2023-06-29 18:08] LABS: PROTHROMBIN TIME 16.9 SECONDS (9.0-12.0)
== END ==
LOC: LAB 17:34
PROVIDERS: Internal Medicine
DX: Z12.5 Encounter for screening for malignant neoplasm of prostate (principal); D18.1 Lymphangioma, any site; K21.9 Gastro-esophageal reflux disease without esophagitis; I62.00 Nontraumatic subdural hemorrhage, unspecified; I74.9 Embolism and thrombosis of unspecified artery; K90.9 Intestinal malabsorption, unspecified; I87.2 Venous insufficiency (chronic) (peripheral); R51.9 Headache, unspecified

== ENCOUNTER → 2023-08-02 | Outpatient (CLI) | payer MEDICAID ==
[2023-08-02 11:59] LABS: PROTHROMBIN TIME 23.6 SECONDS (9.0-12.0)
== END ==
LOC: LAB 11:28
PROVIDERS: Internal Medicine
DX: Z12.5 Encounter for screening for malignant neoplasm of prostate (principal); I87.2 Venous insufficiency (chronic) (peripheral); I62.00 Nontraumatic subdural hemorrhage, unspecified; I74.9 Embolism and thrombosis of unspecified artery; D18.1 Lymphangioma, any site; K21.9 Gastro-esophageal reflux disease without esophagitis; K90.9 Intestinal malabsorption, unspecified; R51.9 Headache, unspecified

== ENCOUNTER → 2023-09-15 | Outpatient (CLI) | payer MEDICAID ==
[2023-09-15 17:24] LABS: PROTHROMBIN TIME 27.1 SECONDS (9.0-12.0)
== END ==
LOC: LAB 16:26
PROVIDERS: Internal Medicine
DX: Z12.5 Encounter for screening for malignant neoplasm of prostate (principal); D18.1 Lymphangioma, any site; K21.9 Gastro-esophageal reflux disease without esophagitis; I62.00 Nontraumatic subdural hemorrhage, unspecified; I74.9 Embolism and thrombosis of unspecified artery; K90.9 Intestinal malabsorption, unspecified; I87.2 Venous insufficiency (chronic) (peripheral)

== ENCOUNTER → 2023-12-28 | Outpatient (CLI) | payer MEDICAID ==
[2023-12-28 11:39] LABS: PROTHROMBIN TIME 17.2 SECONDS (9.0-12.0)
== END ==
LOC: LAB 11:01
PROVIDERS: Internal Medicine
DX: I74.9 Embolism and thrombosis of unspecified artery (principal)

== ENCOUNTER → 2023-12-30 | Outpatient (CLI) | payer MEDICAID ==
[~2023-12-30] VITALS: Ht 170.2 cm; Wt 64.8 kg
[~2023-12-30] MED LIST changes: +Ketorolac 30 MG/ML VIAL IV ONE; +diphenhydrAMINE 50 MG/ML 1 ML VIAL IV ONE
[2023-12-30 15:25] VITALS: BP 124/76
== END ==
LOC: AMSURD 13:26
DX: R51.9 Headache, unspecified (principal)
CPT/HCPCS: J0780; J1200; J1885; J7120

== ENCOUNTER → 2024-01-30 | Outpatient (CLI) | payer MEDICAID ==
[~2024-01-30] MED LIST changes: -Ketorolac 30 MG/ML VIAL IV ONE; -diphenhydrAMINE 50 MG/ML 1 ML VIAL IV ONE
[2024-01-30 13:44] LABS: PROTHROMBIN TIME 26.6 SECONDS (9.0-12.0)
== END ==
LOC: LAB 13:19
PROVIDERS: Internal Medicine
DX: I74.9 Embolism and thrombosis of unspecified artery (principal)

== ENCOUNTER → 2024-02-29 | Outpatient (CLI) | payer MEDICAID ==
[2024-02-29 15:28] LABS: PROTHROMBIN TIME 29.4 SECONDS (9.0-12.0)
== END ==
LOC: LAB 14:49
PROVIDERS: Internal Medicine
DX: I74.9 Embolism and thrombosis of unspecified artery (principal)

== ENCOUNTER → 2024-03-10 | Outpatient (CLI) | payer MEDICAID ==
[2024-03-10 12:16] LABS: PROTHROMBIN TIME 28.4 SECONDS (9.0-12.0)
== END ==
LOC: LAB 11:39
PROVIDERS: Internal Medicine
DX: I74.9 Embolism and thrombosis of unspecified artery (principal)

== ENCOUNTER → 2024-04-23 | Outpatient (CLI) | payer MEDICAID ==
[2024-04-23 12:29] LABS: PROTHROMBIN TIME 33.1 SECONDS (9.0-12.0)
== END ==
LOC: LAB 11:40
PROVIDERS: Internal Medicine
DX: I74.9 Embolism and thrombosis of unspecified artery (principal)

== ENCOUNTER → 2024-05-08 | Outpatient (CLI) | payer MEDICAID ==
[2024-05-08 14:25] LABS: PROTHROMBIN TIME 21.8 SECONDS (9.0-12.0)
== END ==
LOC: LAB 13:51
PROVIDERS: Internal Medicine
DX: I74.9 Embolism and thrombosis of unspecified artery (principal)

== ENCOUNTER → 2024-06-04 | Outpatient (CLI) | payer MEDICAID ==
[2024-06-04 11:31] LABS: PROTHROMBIN TIME 21.2 SECONDS (9.0-12.0)
== END ==
LOC: LAB 11:07
PROVIDERS: Nurse Practitioner Family
DX: I74.9 Embolism and thrombosis of unspecified artery (principal)

== ENCOUNTER → 2024-08-11 | Outpatient (CLI) | payer MEDICAID ==
[2024-08-11 12:50] LABS: PROTHROMBIN TIME 30.5 SECONDS (9.0-12.0)
== END ==
LOC: LAB 12:25
PROVIDERS: Internal Medicine
DX: I74.9 Embolism and thrombosis of unspecified artery (principal)